=== PATIENT | female | born 1980 | race Caucasian/White ===

== ENCOUNTER 2023-10-19 22:53 | Emergency (ER) | payer MEDICAID ==
[~2023-10-19] VITALS: Ht 160 cm; Wt 122.7 kg
[2023-10-20 00:52] LABS: URINE HCG NEGATIVE (NEG)
[2023-10-20 01:05] LABS: URINE AMPHETAMINE SCREEN NEGATIVE (Neg); URINE BARBITUATE SCREEN NEGATIVE (Neg); URINE BENZODIAZEPINES SCREEN NEGATIVE (Neg); URINE CANNABINOID SCREEN NEGATIVE (Neg); URINE COCAINE SCREEN NEGATIVE (Neg); URINE METHADONE SCREEN NEGATIVE (Neg); URINE OPIATE SCREEN NEGATIVE (Neg); URINE PHENCYCLIDINE SCREEN NEGATIVE (Neg)
[2023-10-20 01:09] LABS: BASOPHILS % (AUTO) 0.7 % (0-1); EOSINOPHILS # (AUTO) 0.1 X10'3 (0-0.9); HEMATOCRIT 36.4 % (35.0-45.0); HEMOGLOBIN 12.4 g/dl (12.0-16.0); LYMPHOCYTES # (AUTO) 2.5 X10'3 (1.1-4.8); LYMPHOCYTES % (AUTO) 37.9 % (21-51); MEAN CORPUSCULAR HEMOGLOBIN 31.6 PG (27.0-31.0); MEAN CORPUSCULAR VOLUME 92.9 FL (78-98); MEAN PLATELET VOLUME 7.3 FL (7.4-10.4); MONOCYTES # (AUTO) 0.5 X10'3 (0-0.9); MONOCYTES % (AUTO) 7.4 % (2-12); NEUTROPHILS # (AUTO) 3.5 X10'3 (1.8-7.7); PLATELET COUNT 226 X10'3 (140-440); RED BLOOD COUNT 3.91 X10'6 (4.20-5.60); RED CELL DISTRIBUTION WIDTH 13.4 % (11.5-14.5); WHITE BLOOD COUNT 6.5 X10'3 (4.5-11.0)
[2023-10-20 01:16] LABS: ALBUMIN 3.1 G/DL (3.4-5.0); ANION GAP 11 (8-16); BLOOD UREA NITROGEN 10 MG/DL (7-18); CALCIUM 8.2 MG/DL (8.5-10.1); CHLORIDE 107 MMOL/L (99-107); CREATININE 0.77 MG/DL (0.40-0.90); ETHANOL 85 MG/DL (<10); GLUCOSE 112 MG/DL (70-104); POTASSIUM 4.3 MMOL/L (3.5-5.1); SODIUM 142 MMOL/L (135-145); TOTAL CARBON DIOXIDE 24.4 MMOL/L (24-32); eCRCL 78 ML/MIN; eGFR 82 ML/MIN
[2023-10-20] MEDS: LORazepam 1 MG tablet PO ONE (01:40)
[2023-10-20] MEDS ORDERED: IBUP-1986 PO (01:47)
[2023-10-20] MEDS ORDERED: ROSU40TA22 PO (01:47)
[2023-10-20] MEDS ORDERED: LURA20TA8 PO (01:47)
[2023-10-20 01:52] LABS: THYROID STIMULATING HORMONE 3.18 ulU/ml (0.34-4.50)
[2023-10-20] MEDS ORDERED: CHOL100025 PO (01:54)
[2023-10-20] MEDS ORDERED: DIVA250T2 PO ×2 (01:54→02:15)
[2023-10-20] MEDS ORDERED: THIA100T70 PO (01:54)
[2023-10-20] MEDS ORDERED: folic acid PO (01:54)
[2023-10-20] MEDS ORDERED: DIVA500T2 PO (01:54)
[2023-10-20] MEDS ORDERED: microzide PO (01:54)
[2023-10-20] MEDS ORDERED: DIVA125T31 PO (02:15)
[2023-10-20] MEDS ORDERED: ibuprofen tablet 400 MG TABLET PO PRN (02:35)
[2023-10-20 06:06] VITALS: BP 141/100; PULSE 99; TEMP 97.5; O2SAT 98
[2023-10-20] MEDS: ROSUVASTATIN CALCIUM 5 MG TABLET PO SCH (08:00)
[2023-10-20 08:10] VITALS: RESP 16
[2023-10-20] MEDS: folic acid 1mg tablet PO SCH (08:38)
[2023-10-20] MEDS: divalproex sod 250mg ER (24-hour) tablet PO SCH (08:39)
[2023-10-20] MEDS: thiamine 100mg tablet PO SCH (08:39)
[2023-10-20] MEDS: HYDROchlorothiazide 12.5mg capsule PO SCH (08:39)
[2023-10-20] MEDS: nicotine 21mg patch - 24 hr TD SCH (09:28)
[2023-10-20] MEDS ORDERED: lurasidone 20mg tablet PO SCH (18:00)
[2023-10-20] MEDS ORDERED: divalproex sod 250mg ER (24-hour) tablet PO SCH (21:00)
[2023-10-25] MEDS ORDERED: cholecalciferol (vitamin D3) 1,000 unit (25mcg) tablet PO SCH (08:30)
== END 2023-10-20 11:55 | disposition home or self-care (01) ==
LOC: ER 22:54
DX: F31.9 Bipolar disorder, unspecified (principal); Z20.822 Contact with and (suspected) exposure to COVID-19
CPT/HCPCS: 36415; 80048; 80305; 80320; 81025; 84443; 85025; 87811; 99284